=== PATIENT | female | born 1995 | race African-American/Black ===

== ENCOUNTER 2019-04-16 17:51 | Emergency (ER) | payer SELFPAY ==
[~2019-04-16] VITALS: Ht 167.6 cm; Wt 53.0 kg
[2019-04-16] MEDS ORDERED: HYDROCODONE/ACETAMINOPHEN 5/325MG TABLET PO ONE (18:30)
[2019-04-16 19:04] VITALS: BP 122/72
== END 2019-04-16 19:04 | disposition home or self-care (01) ==
LOC: ER 17:51
DX: N76.0 Acute vaginitis (principal)
CPT/HCPCS: 87070; 99283